=== PATIENT | female | born 1980 | race Caucasian/White ===

== ENCOUNTER 2017-09-12 19:36 | Emergency (ER) | payer OTHER ==
[~2017-09-12] VITALS: Ht 162.6 cm; Wt 117.9 kg
[2017-09-12 20:43] LABS: URINE BILIRUBIN NEGATIVE (Negative); URINE BLOOD NEGATIVE (Negative); URINE CLARITY CLEAR; URINE COLOR YELLOW; URINE GLUCOSE-RANDOM NEGATIVE (Negative); URINE KETONES TRACE (Negative); URINE LEUKOCYTES-REFLEX NEGATIVE (Negative); URINE NITRITE-REFLEX NEGATIVE (Negative); URINE PROTEIN NEGATIVE (Negative); URINE SPECIFIC GRAVITY 1.025 (1.005-1.030); URINE UROBILINOGEN 0.2 E.U./dl (0.2-1.0)
[2017-09-12 21:34] LABS: ABSOLUTE BASOPHILS 0.1 thou/uL (0.0-0.2); ABSOLUTE EOSINOPHILS 0.2 thou/uL (0.0-0.7); ABSOLUTE LYMPHOCYTES 3.4 thou/uL (0.8-5.3); ABSOLUTE MONOCYTES 0.9 thou/uL (0.0-1.2); ABSOLUTE NEUTROPHILS 6.6 thou/uL (1.6-8.1); BASOPHILS 0.7 %; EOSINOPHILS 2.1 %; HEMATOCRIT 38.2 % (37.0-47.0); HEMOGLOBIN 12.6 gm/dL (12.0-15.0); LYMPHOCYTES 30.3 %; MCH 26.6 pg (26.0-34.0); MCHC 33.1 g/dL (28.0-37.0); MCV 80.4 fL (80.0-100.0); MONOCYTES 8.3 %; MPV 8.7 fl. (7.2-11.1); NUCLEATED RBCS 0 /100WBC; PLATELET COUNT* 304 thou/uL (150-400); POLYS 58.6 %; RBC 4.75 mil/uL (4.20-5.00); RDW-CV 15.2 % (10.5-14.5); WBC 11.3 thou/uL (4.0-11.0)
[2017-09-12 21:46] LABS: CALCIUM 9.1 mg/dL (8.5-10.1); POTASSIUM 3.8 mmol/L (3.5-5.1)
[2017-09-12 21:54] LABS: ALBUMIN 3.6 g/dL (3.4-5.0); TOTAL BILIRUBIN 0.2 mg/dL (<0.1-1.0)
[2017-09-12] MEDS ORDERED: ZOFRAN ODT4 MG PO (23:21)
[2017-09-12] MEDS ORDERED: ULTRAM 50MG TAB50 MG PO (23:21)
[2017-09-12] MEDS ORDERED: PEPCID20 MG PO (23:27)
[2017-09-12] MEDS ORDERED: CARAFATE 1 GM TA1 GM PO (23:27)
[2017-09-12 23:36] VITALS: BP 157/89
== END 2017-09-12 23:37 | disposition home or self-care (01) ==
LOC: M.ERS 19:36
PROVIDERS: Personal Emergency Response Attendant
DX: R10.31 Right lower quadrant pain (principal); R10.11 Right upper quadrant pain; Z90.89 Acquired absence of other organs; Z91.013 Allergy to seafood; Z88.8 Allergy status to other drugs, medicaments and biological substances

== ENCOUNTER 2018-02-18 19:53 | Emergency (ER) | payer OTHER ==
[~2018-02-18] VITALS: Ht 160 cm; Wt 127.0 kg
[~2018-02-18 19:53] MED LIST: CARAFATE 1 GM TA1 GM PO; PEPCID20 MG PO; ULTRAM 50MG TAB50 MG PO; ZOFRAN ODT4 MG PO
[2018-02-18] MEDS ORDERED: IBUPROFEN 800800 M1 PO (21:11)
[2018-02-18] MEDS ORDERED: HYDROCODONE-AP1 EAC6 PO (21:11)
[2018-02-18 21:35] VITALS: BP 147/90
== END 2018-02-18 21:36 | disposition home or self-care (01) ==
LOC: M.ERS 19:53
DX: S82.61XA Displaced fracture of lateral malleolus of right fibula, initial encounter for closed fracture (principal); E66.01 Morbid (severe) obesity due to excess calories; Z90.89 Acquired absence of other organs; Z88.8 Allergy status to other drugs, medicaments and biological substances; Z91.013 Allergy to seafood; Z68.42 Body mass index [BMI] 45.0-49.9, adult; W17.2XXA Fall into hole, initial encounter; Y93.89 Activity, other specified; Y92.89 Other specified places as the place of occurrence of the external cause; Y99.8 Other external cause status